=== PATIENT | female | born 1990 | race Caucasian/White ===

== ENCOUNTER 2022-08-19 12:43 | Emergency (ER) | payer BC, SELFPAY ==
[2022-08-19 12:49] VITALS: BP 130/95; PULSE 99; RESP 16; TEMP 37.1; O2SAT 96
--- NOTE | 2022-08-19 13:03 | ED.GENADUL_ITS ---
Discharge Plan Disposition Patient Disposition: Home Discharge Details Clinical Impression: Pharyngitis, streptococcal Primary Care Provider: None,None ED Provider: Elias Funes Home Meds and New Rx's Prescriptions: Continued buspirone 5 mg Tablet 5 mg PO BID clonazepam 0.5 mg Tablet 0.5 mg PO DAILY PRN rosuvastatin 10 mg Tablet 10 mg PO DAILY lamotrigine 50 mg Tablet Extended Release 24hr 50 mg PO DAILY Discharge Instructions Instructions: Strep Throat (ED) Additional Instructions: You may continue to take ibuprofen as needed for further discomfort. You have been given 1 dose of penicillin which will cover you for strep throat. We are pending additional labs and we will contact you with any positive results. If you develop a fever, chills, body aches, headache, tachycardia, increased respiratory rate, or hypotension this may be a reaction to the penicillin that you have received and you should return to the emergency department. If not improving please feel free to return to the emergency department otherwise follow-up with your primary care provider when you are able to have further assessment and evaluation of your rash. Referrals: Primary Care Provider [Outside] Discharge Data Discharge Date/Time-TO BE ENTERED AT DEPARTURE: 08/19/22 15:03 Medical Decision Making Patient presenting to the emergency department for chief complaint of fever chills body aches and cold symptoms for the last 2 weeks. She also states rash that is on her hands and her feet. She states that she initially thought this was the flu and had done home COVID test which were all negative but due to symptoms now persisting for 2 weeks. She does state over the past couple days she has had a mild sore throat but otherwise denies all other symptoms including cough, chest pain, shortness of breath urinary vaginal or abdominal symptoms. Physical exam is unremarkable except for macular papular rash noted to elbows, palmar and dorsal aspect of hand, and plantar rash. No circumoral or oral lesions noted. Patient does state that this rash has been intermittent for years and seems to coincide when she gets a cold. She feels that this is a coxs ackie rash but was unsure due to the duration of symptoms. We will plan on checking patient for COVID flu and RSV, strep, and will perform labs including testing for syphilis given appearance of rash and history of intermittent rash for years. Differential diagnosis to include viral illness, syphilis, strep pharyngitis. At this time I doubt endocarditis given no history of drug abuse, chest pain, or shortness of breath. Patient is afebrile and stable at this time as I do not feel that there are any emergent interventions needed at this time but will continue to monitor. Reviewed patient's labs she does have slight decrease of MVC and MHC otherwise CBC is nondiagnostic, CMP shows elevated AST or ALT.patient is negative for COVID flu and RSV but is positive for strep. Patient is still pending HIV and syphilis testing. Did discuss with patient my concern of possible syphilis given intermittent symptoms for years with palmar rash. Patient states that this seems to have started before she was sexually active but she is agreeable to receiving further testing. Did discuss with patient single dose of 2.4 units of penicillin that would both treat strep and potential for syphilis. Discussed possible reaction if she does have syphilis and received penicillin which she states clear understanding of possible Jarisch-Herxheimer Reaction. Did inform patient that we will contact her with results once send out labs are completed. After discussion of diagnosis and plan of care patient has no further needs, questions, or concerns and states clear understanding to return to the emergency department for any worsening symptoms. This documentation was generated using [email or web address] dictation system, please disregard any oddities of phrase or misspellings. Lab Data Lab results reviewed: Yes I reviewed the patient's lab results. HPI General Mode of arrival: ambulatory . Date/Time Provider Initiated Documentation: 08/19/22 12:45 . Limitations to Documentation: no limitations . Information obtained by: patient and RN notes reviewed . History of Present Illness 31 year old F presents to the emergency department with the chief complaint of Fever, chills, body aches, rash, described as moderate and similar to prior episodes, with intensity rated at 4. Quality is described as aching, Patient started experiencing this week(s) (2) and it has been constant. No relieving factors improve symptom(s), No exacerbating factors reported . Patient did receive the following treatments prior to arrival, NSAID and other (OTC [place] cold) Related Data Home Medications Medication Instructions Recorded Confirmed buspirone 5 mg tablet 5 mg PO BID 08/19/22 08/19/22 clonazepam 0.5 mg tablet 0.5 mg PO DAILY PRN 08/19/22 08/19/22 lamotrigine 50 mg tablet,extended 50 mg PO DAILY 08/19/22 08/19/22 release 24 hr rosuvastatin 10 mg tablet 10 mg PO DAILY 08/19/22 08/19/22 Allergies Allergy/AdvReac Type Severity Reaction Status Date / Time No Known Allergies Allergy Unverified 08/19/22 12:56 General Stated Complaint: RespSymp UNRULY: 4 Review of Systems Constitutional Constitutional: Reports chills, Reports fever(s), Denies headache(s), Reports lethargy and Reports malaise ENT Ears, Nose, Mouth, and Throat: Denies headache(s), Denies nasal congestion and Reports sore throat Cardiovascular Cardiovascular: Denies chest pain and Denies dyspnea Respiratory Respiratory: Denies cough and Denies dyspnea Gastrointestinal Gastrointestinal: Denies abdominal pain Genitourinary Genitourinary: Reports system reviewed and no additional complaints, except as documented Musculoskeletal Musculoskeletal: Denies joint swelling Integumentary/Breasts Skin/Breast: Reports rash Neurologic Neurologic: Denies headache(s) PFSH All Active Problems (Updated 08/19/22 @ 14:39 by Elias Funes NP) Pharyngitis, streptococcal (Acute) Social History Smoking/Tobacco Use Status: Never Smoking risk assessment performed?: Yes Alcohol Intake: current Alcohol Intake frequency: holidays/special occasions only Drug use: Never Substance use type: does not use Do you feel safe at home: Yes Do you feel safe in your relationship?: Yes Exam Const General: cooperative, comfortable and no acute distress Orientation: alert and awake [facility] Head: normal to inspection, normocephalic and atraumatic Ears: hearing grossly normal bilaterally and TM's normal bilaterally General nose exam: external nose normal Face and sinus: no erythema Mouth: oral mucosae normal, lip normal, tongue normal, oropharynx normal, no drooling, no muffled voice and no trismus Throat: posterior oropharynx normal, tonsils normal and uvula midline Neck Neck: normal visual inspection, full ROM, no meningeal signs and trachea midline Resp Effort & Inspection: normal respiratory effort and able to speak in complete sentences Auscultation: clear to auscultation bilaterally Cardio Rate: regular rate Rhythm: regular rhythm Heart Sounds: S1 normal, S2 normal, normal S1 and S2, no click, no gallops, no murmurs and no rubs Skin General skin exam: dry skin (warm) Rashes: rashes noted maculopapular rash diffuse palmar multiple locations color red Neuro General: patient alert, patient awake, patient oriented x3, gait normal and moves all extremities Cognition: normal cognition Speech: speech normal Extrem General: full ROM, capillary refill normal, normal exam except as noted and no edema Course Vital Signs Vital signs: Vital Signs Temperature 37.1 C 08/19/22 12:49 Pulse 99 H 08/19/22 12:49 Respiratory Rate 16 08/19/22 12:49 Blood Pressure 130/95 H 08/19/22 12:49 Pulse Oximetry 96 08/19/22 12:49 Temperature 37.1 C 08/19/22 12:49 Temperature Source Oral 08/19/22 12:49 Pulse 99 H 08/19/22 12:49 Respiratory Rate 16 08/19/22 12:49 Respiratory Effort Normal 08/19/22 12:51 Respiratory Depth Normal 08/19/22 12:51 Blood Pressure 130/95 H 08/19/22 12:49 Blood Pressure Position Sitting 08/19/22 12:49 Pulse Oximetry 96 08/19/22 12:49 Oxygen Delivery Method Room Air 08/19/22 12:49 Oxygen Flow Rate 0 08/19/22 12:49 Pain Level 0 08/19/22 12:49
[2022-08-19 13:15] LABS: Abs Immature Grans 0.02 10^3/uL (0.0-0.06); Absolute Basophil Count 0.04 10^3/uL (0.0-0.2); Absolute Eosinophil Count 0.02 10^3/uL (0.0-0.7); Absolute Lymphocyte Count 2.15 10^3/uL (1.2-3.4); Absolute Monocyte Count 0.28 10^3/uL (0.1-0.8); Absolute Neutrophil Count 2.11 10^3/uL (1.2-6.7); Basophils % 0.9; Eosinophils % 0.4; HCT 38.7 % (36.0-46.0); HGB 12.7 g/dL (11.2-15.7); Immature Grans % 0.4; Lymphocytes % 46.5; MCH 25.4 pg (27.0-33.0); MCHC 32.8 % (32.0-36.0); MCV 77 fL (80-95); MPV 9.6 fL (8.0-11.0); Monocytes % 6.1; Neutrophils % 45.7; Platelet Count 259 10^3/uL (130-400); RDW 13.5 % (11.7-14.6); WBC 4.62 10^3/uL (4.4-10.8)
[2022-08-19 13:35] LABS: ALT 140 U/L (14-59); AST 88 U/L (15-37); Albumin 3.9 g/dL (3.4-5.0); Alkaline Phosphatase 100 U/L (46-116); BUN 9 mg/dL (7-18); Bilirubin, Total 0.4 mg/dL (0.2-1.0); CREATININE 0.9 mg/dL (0.55-1.02); Calcium 9.5 mg/dL (8.5-10.1); Chloride 101 mmol/L (98-107); Estimated GFR 87.11 (mL/min/1.73m2); Glucose 103 mg/dL (74-106); Potassium 3.7 mmol/L (3.5-5.1); Sodium 137 mmol/L (136-145)
[2022-08-19 13:51] LABS: Diff Comment Agrees w/ Instrument; Microcytosis 1+
[2022-08-19 14:12] LABS: COVID-19 PCR Negative (Negative); Influenza A PCR Negative (Negative); Influenza B PCR Negative (Negative); RSV PCR Negative (Negative)
[2022-08-19 14:13] LABS: Source Nasopharynx
[2022-08-20 10:26] LABS: HIV-1/2 Ag & Ab Screen Negative (Negative)
[2022-08-20 10:58] LABS: Syphilis Serology (RPR) Negative (Negative)
== END 2022-08-19 15:03 | disposition home or self-care (01) ==
PROVIDERS: Emergency Provider Nurse Practitioner Family
DX: J02.0 Streptococcal pharyngitis (principal); Z20.822 Contact with and (suspected) exposure to COVID-19
CPT/HCPCS: 36415; 80053; 87389; 87637; 87880; 96372; 99284; 85025; 86592; 87081; J0561